=== PATIENT | male | born 1955 | race Caucasian/White ===

== ENCOUNTER → 2018-09-10 | Day surgery (SDC) | payer BC ==
[2018-09-08 12:22] LABS: BASOPHILS % 0.6 % (0.0-1.0); EOSINOPHILS # (AUTO) 0.2 (0.0-0.4); EOSINOPHILS % 3.4 % (0.0-6.0); HEMOGLOBIN 16.1 g/dL (14.0-18.0); LYMPHOCYTES # (AUTO) 1.4 (1.0-3.2); MEAN CORPUSCULAR HEMOGLOBIN 30.6 pg (28-32); MEAN CORPUSCULAR VOLUME 87.3 fL (81-99); MONOCYTES # (AUTO) 0.5 (0.2-0.8); MONOCYTES % 8.6 % (4.4-11.3); NEUTROPHILS # (AUTO) 3.2 (2.1-6.9); PLATELET COUNT 247 x10e3/uL (140-360); RED BLOOD COUNT 5.27 x10e6/uL (4.3-5.7); RED CELL DISTRIBUTION WIDTH 12.6 % (11.7-14.4)
[2018-09-08 12:48] LABS: ANION GAP 10.7 mmol/L (8-16); BLOOD UREA NITROGEN 18 mg/dL (7-26); BUN/CREATININE RATIO 18 (6-25); CALCIUM 9.7 mg/dL (8.4-10.2); CARBON DIOXIDE 24 mmol/L (22-29); CHLORIDE 102 mmol/L (98-107); EST GLOMERULAR FILTRATION RATE > 60 ML/MIN (60-); GLUCOSE 110 mg/dL (74-118); POTASSIUM 3.7 mmol/L (3.5-5.1); SODIUM 133 mmol/L (136-145)
--- NOTE | 2018-09-08 13:40 | Diagnostic Imaging Report ---
EXAMINATION: PA and lateral views of the chest. COMPARISON: 04/26/2007 CLINICAL HISTORY: Preoperative study for hernia repair DISCUSSION: Lines/tubes: None. Lungs: The lungs are well inflated and clear. There is no evidence of pneumonia or pulmonary edema. Pleura: There is no pleural effusion or pneumothorax. Heart and mediastinum: The cardiomediastinal silhouette is normal. Bones and soft tissues: No acute bony abnormalities. Degenerative changes in the thoracic spine. Cervical spine fusion hardware partially visualized. IMPRESSION: No acute cardiopulmonary abnormalities. Signed by: Dr. Bashir Fiore M.D. on 09/08/2018 1:37 PM
[~2018-09-10] MED LIST: AMLODIPINE BESYL5 MG PO; ATORVASTATIN CA10 MG PO; BUPIVACAINE 0.25%/EPI 30ML SDV INJ ONE; DEXAMETHASONE SOD PHOS INJ 4 MG/ML VIAL ONE; EPHEDRINE SULFATE INJ 50 MG/10 ML SYR ONE; FENTANYL CITRATE/PF 100MCG/2 ML INJ ONE; GLYCOPYRROLATE INJ 1MG/ 5 ML SYR ONE; HYDROCODONE/APAP 7.5MG-325MG 1 EA TAB ONE; HYDROMORPHONE 2MG/ML 2 MG/ML ML ONE; KETOROLAC TROMETHAMINE 30 MG/ML VIAL ONE; LIDOCAINE HCL 1% LOCAL INJ 20 ML VIAL ONE; LIDOCAINE HCL 2% LOCAL INJ 5 ML SDV VIAL INJ ONE; LISINOPRIL5 MG PO; LYRICA150 MG PO; MIDAZOLAM HCL 2 MG/2 ML VIAL ONE; MORPHINE SULFATE INJ 10 MG/ML ONE; NEOSTIGMINE 5 MG/5ML SYR ONE; ONDANSETRON HCL INJ 2MG/ML 2ML 2 MG/ML VIAL ONE; PANTOPRAZOLE SO40 MG PO; PHENYLEPHRINE HCL 1% 10 MG/ML VIAL ONE; PROPOFOL IV EMULSION 10 MG/ML 20 ML VIAL ONE; ROCURONIUM BROMIDE 10 MG/ML 5ML VIAL ONE; SEVOFLURANE INHAL SOLN 250 ML PEN BTL ONE; TIZANIDINE HCL4 MG PO; ULTRAM 50MG50 MG PO; VICODIN PO; potassium supplement
--- NOTE | 2018-09-10 13:59 | Operative Report ---
DATE OF PROCEDURE: 09/10/2018 SURGEON: Robin Mccormick MD PREOPERATIVE DIAGNOSIS: Left inguinal hernia. POSTOPERATIVE DIAGNOSIS: Left sliding inguinal hernia. OPERATION PERFORMED: Repair of left sliding inguinal hernia with extended Prolene hernia system. RETAIL PROPERTY MANAGER: ESTRELLA Bains. ANESTHESIA: General. COMPLICATIONS: None. ESTIMATED BLOOD LOSS: Minimal. DESCRIPTION OF PROCEDURE: With the patient lying in bed in the supine position under good general endotracheal anesthesia, the abdomen was prepped with Betadine solution and draped in the usual manner. A left inguinal incision was made and was carried down through the subcutaneous tissue down to the external oblique aponeurosis. External oblique was then opened along the length of its fibers and the external inguinal ring was opened. The cord was then mobilized and retracted. Exploration of the cord revealed the presence of a indirect hernia sac, which was from the cord structures, this was obviously a sliding-type hernia that contained some of the colon. The excess of the sac was then pursestring with the 2-0 silk suture ligature and 2-0 silk tie and the excess of the sac was resected and the rest of the sac was reduced back to the intraabdominal cavity. The preperitoneal space was then entered right through the internal ring and a pocket was created without any difficulty. An extended Prolene hernia system was placed in the preperitoneal space and the underlay patch was deployed without any problems. The overlay patch was then placed over the floor and split inferolaterally to allow for passage of the cord. The mesh was then sutured to the conjoined tendon and the inguinal ligament using interrupted sutures of 2-0 Vicryl. All layers were infiltrated on the way out with solution of 0.25% Marcaine and 1% lidocaine mixed in equal parts. The external oblique aponeurosis was closed with a running suture 2-0 Vicryl. The subcutaneous tissue was approximated with 3-0 plain and the skin was closed with clips. A dressing was applied. The sponge, lap, and needle counts were correct. The patient tolerated the procedure well and returned to the recovery room in stable condition. MD MEMO Reynoso/EUGENIOL /[id number]
[2018-09-10 15:30] VITALS: BP 107/65
--- OUTSIDE RECORDS SUMMARY | 2018-09-16 11:05 | XMS REPORT ---
Author Author [facility] Address Unknown Phone Unavailable Care Team Providers Care Chemistry Account Manager Name Role Phone Chris RODRIGUEZ Unavailable Unavailable Problems This patient has no known problems. Allergies, Adverse Reactions, Alerts This patient has no known allergies or adverse reactions. Medications This patient has no known medications. Results Test Description Test Time Test Comments Text Results Atomic Results Result Comments CHEST 2 VIEWS 2018-09-08 13:35:00 [place] [id number] Patient Name: JOAN COLE MR #: [id number] : 1955 Age/Sex: 63/M Req #: [id number] [facility] Physician: Ordered by: MICHAEL RODRIGUEZ MD Report #: [id number] Location: OR Room/Bed: Procedure: [id number] DX/CHEST 2 VIEWS Exam Date: 09/08/18 Exam Time: 0920 REPORT STATUS: Signed EXAMINATION: PA and lateral views of the chest. [facility]ISON: 04/26/2007 CLINICAL HISTORY: Preoperative study for hernia repair DISCUSSION: Lines/tubes: None. Lungs: The lungs are well inflated and clear. There is no evidence of pneumonia or pulmonary edema. Pleura: There is no pleural effusion or pneumothorax. Heart and mediastinum: The cardiomediastinal silhouette is normal. Bones and soft tissues: No acute bony abnormalities. Degenerative changes in the thoracic spine. Cervical spine fusion hardware partially visualized. IMPRESSION: No acute cardiopulmonary abnormalities. Signed by: Dr. Ruby Hatch M.D. on 09/08/2018 1:37 PM Dictated By: RUBY HATCH MD 36 Transcribed By: CHELY on 09/08/181336 COPY TO: MICHAEL RODRIGUEZ MD
== END | disposition home or self-care (01) ==
LOC: OR 11:03
PROVIDERS: ATTEND Surgery
DX: K40.90 Unilateral inguinal hernia, without obstruction or gangrene, not specified as recurrent (principal); I10 Essential (primary) hypertension; K21.9 Gastro-esophageal reflux disease without esophagitis; K58.9 Irritable bowel syndrome, unspecified; K57.90 Diverticulosis of intestine, part unspecified, without perforation or abscess without bleeding; Z01.810 Encounter for preprocedural cardiovascular examination; Z01.812 Encounter for preprocedural laboratory examination; Z01.818 Encounter for other preprocedural examination
CPT/HCPCS: 36415; 49525; 71046; 80048; 85025; 88302; 93005; C1781; J1100; J1170; J1885; J2001 ×2; J2250; J2270; J2370; J2405; J2704; J3490